=== PATIENT | female | born 2000 | race Caucasian/White ===

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

== ENCOUNTER 2019-02-08 19:42 | Emergency (ER) | payer OTHER ==
[~2019-02-08] VITALS: Ht 172.7 cm; Wt 76.2 kg
[2019-02-08 19:55] VITALS: Ht 172.7 cm; Wt 76.2 kg
[2019-02-08 21:20] VITALS: BP 114/68
== END 2019-02-08 21:20 | disposition home or self-care (01) ==
LOC: ED 19:42
DX: S00.531A Contusion of lip, initial encounter (principal); S09.8XXA Other specified injuries of head, initial encounter; F32.9 Major depressive disorder, single episode, unspecified; Y04.8XXA Assault by other bodily force, initial encounter; Y93.89 Activity, other specified; Y92.89 Other specified places as the place of occurrence of the external cause; Y99.8 Other external cause status